=== PATIENT | female | born 1965 | race Caucasian/White ===

== ENCOUNTER 2021-07-24 06:20 | Day surgery (SDC) | payer BC, OTHER ==
[~2021-07-24] VITALS: Ht 162.6 cm; Wt 79.5 kg
--- NOTE | ~2021-07-24 | OR ---
[facility] [address], [place] [address] Draft DATE OF OPERATION: 07/24/2021 SURGEON: Maximiliano Willard MD PREOPERATIVE DIAGNOSIS: History of adenomatous polyps, 2018. POSTOPERATIVE DIAGNOSES: 1. Sigmoid and left-sided diverticulosis. 2. Polyps x4. PROCEDURE: Total colonoscopy to cecum with hot snare polypectomy x1, cold snare polypectomy x1 and cold morcellation polypectomy x2. ANESTHESIA: Intravenous sedation, fentanyl 100 mcg and Versed 6 mg. INDICATION: This 56-year-old white woman is a patient of Dr. Kim. She is practicing information technology program manager locally. She underwent colonoscopy by me in 2018, at which time she was found to have adenomatous polyps. She has no family history of colon cancer though her mother had polyps. She is admitted for surveillance colonoscopy. She understands the risks of bleeding, infection, and perforation. FINDINGS: The prep was excellent. Complete colonoscopy was undertaken to the cecum without question. She had four polyps in total, one in the cecum, one in the proximal ascending colon, one at 30 cm and one at 20 cm. All were excised completely and all were almost certainly adenomatous. DESCRIPTION OF PROCEDURE: The patient was brought to the endoscopy suite and placed in lateral decubitus position, given intravenous sedation to the point of slurred speech and nystagmus. Digital rectal examination was normal. An Olympus video colonoscope was passed in the rectum and manipulated throughout the colon noting diverticular change of the sigmoid and left colon. The scope was passed ultimately into the cecum. Ileocecal valve and appendiceal orifice were normal. A small polyp was noted on a fold in the cecum. This was excised with cold snare PATIENT NAME: ELIAS CALLAWAY OPERATIVE REPORT DATE OF : 69 REPORT #: [id number] PHYSICIAN: MAXIMILIANO WILLARD MD PCP: PANDA KIM MD REPORT IS CONFIDENTIAL AND NOT TO BE RELEASED WITHOUT AUTHORIZATION [facility] [address], [place] [address] Draft technique. Specimen was passed for pathology. The scope was withdrawn and the right colon proper was a smaller polyp. Narrow band imaging confirmed this likely to be adenomatous polyp, this was excised with cold morcellation technique. The scope was further withdrawn and there were no other findings until about 30 cm from the anal verge, where a small, but pedunculated polyp was noted, this was excised with hot snare polypectomy technique. Specimen passed for pathology as well. Further withdrawal at 20 cm showed a subtle, but certain adenomatous appearing polyp, which was excised with multiple bites with cold morcellation device. Further withdrawal showed no other abnormality including retroflexed view, which was normal. The scope was removed and the patient was taken to the recovery room in good condition. CONCLUDING DIAGNOSIS: Polyps x4 and diverticulosis. PLAN: Recommend a repeat colonoscopy in three years sooner if clinically indicated. Recommend high-fiber diet as well. MD LITO Torres/KYLE /[id number] cc: Panda Kim MD Copies: PANDA KIM MD ~ PATIENT NAME: JOSE MEZAELIAS ZUNIGA OPERATIVE REPORT DATE OF : 69 REPORT #: [id number] PHYSICIAN: MAXIMILIANO WILLARD MD PCP: PANDA KIM MD REPORT IS CONFIDENTIAL AND NOT TO BE RELEASED WITHOUT AUTHORIZATION
[~2021-07-24 06:20] MED LIST: CANDICIDAL CAP1 EACH PO; CELECOXIB200 MG PO; DEPO-PROVER150 MG/ML IM; DICLOFENAC SODI75 MG PO; ESTRADIOL0.5 MG PO; FISH OIL 1,0001 EAC6 PO; HYDROCODON-ACE1 EA10 PO; MACULAR HEALTH1 EACH PO; NORTRIPTYLINE H25 MG PO
--- NOTE | 2021-07-24 08:24 | NUR ---
07/24/21 0824 Ranjit Quijano DENIES PAIN OR NAUSEA ON ENTRY TO PACU.
--- NOTE | 2021-07-24 10:05 | NUR ---
PT ALERT, ORIENTED AND SEEMS PREPARED. PT HAS HAD PREVIOUS SCOPE, ALL OF HER QUESTIONS ANSWERED. PT'S WILL P-UP FOLLOWING DC. PT REQUSTTED PRAYER WILL FOLLOW NEEDED
--- NOTE | 2021-07-25 13:15 | PATH ---
[facility] [address], [place] [address] Signed SPECIMEN(S): A CECUM POLYP SPECIMEN(S): B ASCENDING/RIGHT COLON SPECIMEN(S): C POLYP AT 35 CM SPECIMEN(S): D POLYP AT 20 CM SPECIMEN SOURCE: A. CECUM POLYP B. ASCENDING/RIGHT COLON C. POLYP AT 35 CM D. POLYP AT 20 CM CLINICAL HISTORY: Colonoscopy. History of tubular adenoma at 15 and 25 cm, 2018. FINAL PATHOLOGIC DIAGNOSIS: A. Cecum, polypectomy: - Tubular adenoma. B. Colon, ascending/right, polypectomy: - Colonic mucosa with no significant pathologic changes. C. Colon, 35 cm, polypectomy: - Tubular adenoma. D. Colon, 20 cm, polypectomy: - Colonic mucosa with a lymphoid aggregate. BRP:vlg:[id number] MICROSCOPIC EXAMINATION: Histologic sections of all submitted blocks are examined by light microscopy. These findings, together with the gross examination, support the pathologic diagnosis. GROSS DESCRIPTION: Four specimens are received in four containers, labeled "MM." A. The specimen, labeled "MM, cecal polyp," is received in formalin and consists of two negrete soft tissue fragments that measure 0.2-0.7 cm in greatest dimension. The specimen is entirely submitted in cassette (A1). B. The specimen, labeled "MM, right colon polyp," is received in formalin and consists of one negrete soft tissue fragment that measures 0.2 cm in greatest dimension. The specimen is entirely submitted in cassette (B1). C. The specimen, labeled "MM, polyp at 35 cm," is received in formalin and PATIENT NAME: ELIAS CALLAWAY PATHOLOGY DATE OF : 69 REPORT #: [id number] PHYSICIAN: ADEOLA ANDERSEN PCP: PANDA ARAGON MD REPORT IS CONFIDENTIAL AND NOT TO BE RELEASED WITHOUT AUTHORIZATION [facility] [address], [place] [address] Signed consists of three negrete soft tissue fragments that measure 0.3-0.7 cm in greatest dimension. The specimen is entirely submitted in cassette (C1). D. The specimen, labeled "MM, polyp at 20 cm," is received in formalin and consists of three negrete soft tissue fragments that measure 0.2-0.4 cm in greatest dimension. The specimen is entirely submitted in cassette (D1). AT (under the direct supervision of a pathologist) The Gross Description was prepared using a voice recognition system. The report was reviewed for accuracy; however, sound-alike word errors, addition and/or deletions may occur. If there is any question about this report, please contact Client Services. PERFORMING LABORATORY: The technical component was performed by [facility] [id number] (Mid Level Java Developer: Nava Cabrera MD; CLIA# [id number]). [facility] [address] [address] (CLIA# [id number]). Diagnostician: Homer Luna MD Pathologist Electronically Signed 07/25/2021 Copies: ~ PATIENT NAME: ELIAS CALLAWAY PATHOLOGY DATE OF : 69 REPORT #: [id number] PHYSICIAN: ADEOLA PATHOLOGY PCP: PANDA ARAGON MD REPORT IS CONFIDENTIAL AND NOT TO BE RELEASED WITHOUT AUTHORIZATION
== END 2021-07-24 08:55 | disposition home or self-care (01) ==
LOC: DS 06:20 → OPS 06:20 → DS 06:45 → OPS 06:45
PROVIDERS: ATTEND Surgery
PROC: 0DBK8ZX Excision of Ascending Colon, Via Natural or Artificial Opening Endoscopic, Diagnostic (ICD-10-PCS; 2021-07-24)
PROC: 0DBH8ZX Excision of Cecum, Via Natural or Artificial Opening Endoscopic, Diagnostic (ICD-10-PCS; 2021-07-24)
PROC: 0DBE8ZX Excision of Large Intestine, Via Natural or Artificial Opening Endoscopic, Diagnostic (ICD-10-PCS; principal; 2021-07-24 06:45)
DX: D12.2 Benign neoplasm of ascending colon (principal); D12.0 Benign neoplasm of cecum; K57.30 Diverticulosis of large intestine without perforation or abscess without bleeding
CPT/HCPCS: 99153; G0500; J2250; J3010; J7121

== ENCOUNTER 2024-07-20 06:20 | Day surgery (SDC) | payer OTHER ==
[~2024-07-20] VITALS: Ht 162.6 cm; Wt 79.5 kg
[~2024-07-20 06:20] MED LIST changes: +MIDAZOLAM HCL 5 MG/5 ML VIAL IV PRN; +fentaNYL citrate 100 MCG/2 ML VIAL IV PRN
[2024-07-20 06:38] VITALS: BP 128/60
[2024-07-20] MEDS ORDERED: CALCIUM500 MG PO (06:40)
[2024-07-20] MEDS ORDERED: MIDAZOLAM HCL 5 MG/5 ML VIAL ONE (06:41)
[2024-07-20] MEDS ORDERED: fentaNYL citrate 100 MCG/2 ML VIAL ONE (06:41)
[2024-07-20] MEDS ORDERED: LIDOCAINE HCL 1% 5 ML SDV INJ ONE (07:00)
[2024-07-20] MEDS ORDERED: IBLOOD GLUCOSE TEST STRIP 1 EA TEST VI PRN (07:00)
[2024-07-20] MEDS ORDERED: LACTATED RINGER'S 1,000 ML IV SCH (07:00)
--- NOTE | 2024-07-20 07:28 | NUR ---
VISITED DURING SPIRITUAL CARE ROUNDS. PT IN OVERALL GOOD SPIRITS, NO IMMEDIATE NEEDS. MACHINE PECAN GATHERER PROVIDED SUPPORTIVE PRESENCE, HOSPITALITY, PRAYER, FACILITATED INTERACTION WITH THERAPY ANIMAL. PT EXPRESSED GRATITUDE.
--- NOTE | 2024-07-20 08:20 | NUR ---
07/20/24 0820 Rosangela Dutton 0808-PT ARRIVES TO PACU RESTING ON LT SIDE, PT A+O X4, DENIES PAIN OR NUASEA, PT ENCOURAGED TO PASS GAS. VSS ON 1L VIS NC, RR EVEN AND UNLABORED. 0810-PT TITRATED TO RA, VS REMAIN STABLE. 0815-DR. WILLARD AT BEDSIDE TO DISCUSS PROCEDURE RESULTS AND PLAN OF CARE, ALL QUESTIONS ANSWERED. 0820-PT SITTING UP IN BED SIPPING ON WATER, DENIES PAIN, VSS ON RA.
[2024-07-20 08:45] VITALS: BP 112/73
--- NOTE | 2024-07-20 15:12 | OR ---
[facility] [facility] [address] [place], [place] [address] Signed DATE OF OPERATION: 07/20/2024 SURGEON: Maximiliano Willard MD PREOPERATIVE DIAGNOSES: 1. History of tubular adenoma x2 2020. 2. Known diverticulosis. POSTOPERATIVE DIAGNOSES: Diverticulosis, left colon and sigmoid. No evidence of polyp. PROCEDURE: Total colonoscopy to cecum. ANESTHESIA: Intravenous sedation; fentanyl 100 mcg, Versed 5 mg. INDICATION: This 59-year-old white woman is a patient of Dr. Kim. She has undergone colonoscopy by me in the past including in 2020, where she was noted to have four apparent polyps, two of which were tubular adenomas, the others were lymphoid aggregates only. She also had diverticulosis. She is admitted at this time to undergo surveillance colonoscopy. She understands the risk of bleeding, infection, and perforation. She is currently symptom free and has no family history of colon cancer. FINDINGS: The prep was excellent. Complete colonoscopy was undertaken to the cecum with full intubation of the cecum. There were scattered diverticula of the sigmoid and left colon, but no evidence of polyps or other abnormality. DESCRIPTION OF PROCEDURE: The patient was brought to the endoscopy suite and placed in the lateral decubitus position, given intravenous sedation to the point of slurred speech and nystagmus. Digital rectal examination was normal. An Olympus video colonoscope was passed in the rectum and manipulated into the sigmoid and left colon where diverticulosis was noted. The scope was ultimately advanced to the cecum. Full intubation of the cecum was accomplished. Appendiceal orifice and ileocecal valve well identified. The scope was then withdrawn. Examination throughout showed no sign of abnormality other than diverticula. Retroflexed view of the rectum Electronically Signed By: MAXIMILIANO WILLARD MD 07/20/24 1512 PATIENT NAME: ELIAS CALLAWAY OPERATIVE REPORT DATE OF : 69 REPORT #: [id number] PHYSICIAN: MAXIMILIANO WILLARD MD PCP: PANDA KIM MD REPORT IS CONFIDENTIAL AND NOT TO BE RELEASED WITHOUT AUTHORIZATION [facility] [address] [place], [place] [address] Signed was normal. The scope was removed and the patient was taken to recovery room in good condition. CONCLUDING DIAGNOSIS: Diverticulosis. No evidence of polyps. PLAN: Recommend repeat colonoscopy in 7 to 10 years based on current recommendations. Would maintain high-fiber diet as well. She will return to the ongoing care of Dr. Kim. MD LITO Torres/MODL /[id number] cc: Dr. Kim Copies: ~ Electronically Signed By: MAXIMILIANO WILLARD MD 07/20/24 1512 PATIENT NAME: ELIAS CALLAWAY OPERATIVE REPORT DATE OF : 69 REPORT #: [id number] PHYSICIAN: MAXIMILIANO WILLARD MD PCP: PANDA KIM MD REPORT IS CONFIDENTIAL AND NOT TO BE RELEASED WITHOUT AUTHORIZATION
== END 2024-07-20 08:35 | disposition home or self-care (01) ==
LOC: DS 06:20
PROVIDERS: ATTEND Surgery
PROC: 0DJD8ZZ Inspection of Lower Intestinal Tract, Via Natural or Artificial Opening Endoscopic (ICD-10-PCS; principal; 2024-07-20 07:30)
DX: Z12.11 Encounter for screening for malignant neoplasm of colon (principal); K57.30 Diverticulosis of large intestine without perforation or abscess without bleeding; Z86.0101 Personal history of adenomatous and serrated colon polyps; Z88.0 Allergy status to penicillin
CPT/HCPCS: 99153; G0500; J2250; J3010; J7121

== ENCOUNTER 2024-10-15 08:38 | Emergency (ER) | payer OTHER ==
[~2024-10-15] VITALS: Ht 162.6 cm; Wt 81.4 kg
[~2024-10-15 08:38] MED LIST changes: +CALCIUM500 MG PO; -MIDAZOLAM HCL 5 MG/5 ML VIAL IV PRN; -fentaNYL citrate 100 MCG/2 ML VIAL IV PRN
[2024-10-15] MEDS ORDERED: ESTRADIOL42.5 GM VG (09:07)
[2024-10-15] MEDS ORDERED: TAMSULOSIN HCL0.4 MG PO (09:07)
[2024-10-15] MEDS ORDERED: TRAMADOL HCL50 MG PO (09:07)
[2024-10-15] MEDS ORDERED: CIPROFLOXACIN250 MG PO (09:07)
[2024-10-15] MEDS ORDERED: ONDANSETRON ODT4 MG PO (09:07)
[2024-10-15] MEDS ORDERED: ondansetron HCL 4 MG/2 ML VIAL IV ONE (09:15)
[2024-10-15] MEDS ORDERED: SODIUM CHLORIDE 0.9% 1,000 ML IV PRN (09:15)
[2024-10-15] MEDS ORDERED: MORPHINE SULFATE 4 MG/ML VIAL IV ONE (09:15)
[2024-10-15 09:22] LABS: BASOPHILS 0.3 % (0-2); HEMATOCRIT 39.5 % (35.0-50.0); HEMOGLOBIN 13.2 g/dL (12.0-18.0); LYMPHOCYTES 9.7 % (24-44); MCH 26.6 (27-36); MCHC 33.3 g/dl (30-36); MCV 79.8 fl (81-99); MONOCYTES 5.8 % (0-12); NEUTROPHILS 84.2 % (39-80); PLATELET COUNT 283 K/uL (140-440); RBC 4.95 M/ul (4.3-5.7); RDW 15.8 (10.5-15.0)
[2024-10-15 09:42] LABS: ALBUMIN 3.9 g/dL (3.4-5.0); ALBUMIN/GLOBULIN RATIO 1.03 (1.1-2.4); ANION GAP 14.3 (7-21); BILIRUBIN, TOTAL 0.4 mg/dL (0.2-1.0); BUN/CREATININE RATIO 13.13 (6.0-28.6); CALCIUM 9.3 mg/dL (8.5-10.1); CREATININE, SERUM 0.99 mg/dL (0.55-1.02); POTASSIUM 4.3 mmol/L (3.5-5.1); PROTEIN, TOTAL 7.7 g/dL (6.4-8.2)
[2024-10-15 10:19] LABS: BILIRUBIN, URINE NEGATIVE (negative); BLOOD/HGB, URINE LARGE (Negative); KETONE, URINE NEGATIVE (Negative); LEUK ESTERASE, URINE SMALL (negative); NITRITE, URINE NEGATIVE (negative); PH, URINE 6.5 (5-7)
[2024-10-15 10:27] LABS: RED BLOOD CELLS, URINE 21-40 /hpf (0-5)
[2024-10-15 10:28] LABS: BACTERIA, URINE NONE SEEN /hpf (negative); CASTS, URINE NONE SEEN \\lpf; COLLECTION TYPE, URINE CLEAN CATCH; CRYSTALS, URINE NONE SEEN (0-1+); EPITHELIAL CELLS, URINE SQUAMOUS 1+ /lpf (0-1+)
[2024-10-15 10:29] LABS: REFLEX CULTURE, URINE Yes (No)
[2024-10-15] MEDS ORDERED: HYDROCODON-ACE1 EA10 PO (11:52)
[2024-10-15] MEDS ORDERED: CIPROFLOXACIN/DEXTROSE 400 MG/200 ML PIGGYBACK IV ONE (12:00)
[2024-10-15 13:21] VITALS: BP 120/63
== END 2024-10-15 13:21 | disposition home or self-care (01) ==
LOC: ED 08:38
PROVIDERS: Emergency Medicine
DX: R11.10 Vomiting, unspecified (principal); Z98.890 Other specified postprocedural states; Z96.0 Presence of urogenital implants; Z88.0 Allergy status to penicillin; Z79.899 Other long term (current) drug therapy
CPT/HCPCS: 36415; 74176; 80053; 81001; 83690; 85025; 87088; 96374; 96375; 99284-25; J0744; J2270; J2405; J7030

== ENCOUNTER 2025-03-29 05:57 | Day surgery (SDC) | payer OTHER ==
[~2025-03-29] VITALS: Ht 160 cm; Wt 81.0 kg
[~2025-03-29 05:57] MED LIST changes: +CIPROFLOXACIN250 MG PO; +ESTRADIOL42.5 GM VG; +LACTATED RINGER'S 1,000 ML IV SCH; +ONDANSETRON ODT4 MG PO; +TAMSULOSIN HCL0.4 MG PO; +TRAMADOL HCL50 MG PO
[2025-03-29 06:09] VITALS: BP 128/74
[2025-03-29] MEDS ORDERED: CEFAZOLIN SODIUM 2 GM/20 ML SYR IV SCH (07:00)
[2025-03-29] MEDS ORDERED: IBLOOD GLUCOSE TEST STRIP 1 EA TEST VI PRN ×2 (07:00→09:45)
[2025-03-29] MEDS ORDERED: LIDOCAINE HCL 1% 5 ML SDV INJ ONE (07:00)
[2025-03-29] MEDS ORDERED: LIDOCAINE HCL 1% 30 ML SDV ONE (07:07)
[2025-03-29] MEDS ORDERED: LIDOCAINE HCL 2% 5 ML SDV ONE (07:07)
[2025-03-29] MEDS ORDERED: KETOROLAC TROMETHAMINE 30 MG/ML VIAL ONE (07:07)
[2025-03-29] MEDS ORDERED: DEXAMETHASONE SOD PHOS 4 MG/ML VIAL ONE (07:07)
[2025-03-29] MEDS ORDERED: MIDAZOLAM HCL 2 MG/2 ML VIAL ONE (07:29)
[2025-03-29] MEDS ORDERED: PHENAZOPYRIDINE HCL 100 MG TAB PO PRN (07:45)
[2025-03-29] MEDS ORDERED: KETOROLAC TROMETHAMINE 30 MG/ML VIAL IV PRN (07:45)
[2025-03-29] MEDS ORDERED: OXYCODONE/APAP 5/325 TAB PO PRN (07:45)
[2025-03-29] MEDS ORDERED: HYDROmorphone HCL 1 MG/ML SYR IV PRN (07:45)
[2025-03-29] MEDS ORDERED: ACETAMINOPHEN 1,000 MG/100 ML VIAL ONE (09:08)
--- NOTE | 2025-03-29 09:23 | NUR ---
03/29/25 0923 Stephanie Morales 0918: PT ARRIVES TO PACU, NO AROUSAL TO STIMULI. REPORT RECIEVED FROM PULMONARY DISEASE SPECIALIST AND GRINDING SUPERVISOR.
[2025-03-29] MEDS ORDERED: NALOXONE HCL 0.4 MG SYR IV PRN (09:45)
[2025-03-29] MEDS ORDERED: fentaNYL citrate 50 MCG/ML SDV IV PRN (09:45)
[2025-03-29 09:54] VITALS: BP 122/74
--- NOTE | 2025-03-29 09:58 | NUR ---
0952- PT ARRIVES FROM PACU. PT DENIES PAIN AND NAUSEA. WARM BLANKETS PROVIDED PER PT REQUEST. VITAL SIGNS OBTAINED. DISCHARGE CRITERIA DISCUSSED AND PT IS UNDERSTANDING. PT FALLS ASLEEP BUT IS EASILY WOKEN WITH VERBAL STIMULI. BED IS LOCKED IN THE LOWEST POSITION AND CALL LIGHT IS IN REACH.
[2025-03-29 10:58] VITALS: BP 144/68
--- NOTE | 2025-03-29 12:58 | NUR ---
1055- PT IS UP TO USE THE BATHROOM. PT WALKS WITH A STEADY AND EVEN GAIT. 300ML OF RED TINGED URINE NOTED. PT IS ABLE TO RETURN BACK TO STRETCHER SAFELY. VITAL SIGNS OBTAINED. PT IS ABLE TO EAT AND DRINK WITH NO ISSUES. PT DENIES PAIN AND NAUSEA. 1115- DISCHARGE INSTRUCTIONS GONE OVER WELL HAS HOW AND WHEN TO REMOVE THE STENT. ALL QUESTIONS AND CONCERNS ANSWERED. IV REMOVED. PT IS ABLE TO GET DRESSED INDEPENDENTLY. PT IS ABLE TO GET INTO HOSPITAL WHEELCAHIR WITH NO ISSUES. PT DC'S FROM DAY SURGERY AT THIS TIME AND IS ABLE TO GET INTO FRIENDS VEHICLE WITH NO ISSUES. PRESCIPTION IS WITH PT. PT HAS ALL BELONGINGS.
--- NOTE | 2025-03-29 14:16 | NUR ---
PT NOT AVAILABLE FOR VISIT. PROVIDED PRAYER.
[2025-03-29] MEDS ORDERED: SEVOFLURANE 250 ML BTL INH ONE (14:30)
[2025-04-02] MEDS ORDERED: HYDROCODON-ACE1 EA10 PO (16:59)
[2025-04-04 05:24] LABS: CALCULI MASS 87 mg (())
== END 2025-03-29 11:15 | disposition home or self-care (01) ==
LOC: DS 05:57
PROVIDERS: ATTEND Urology
PROC: 0TC08ZZ Extirpation of Matter from Right Kidney, Via Natural or Artificial Opening Endoscopic (ICD-10-PCS; principal; 2025-03-29 07:30)
PROC: 0T768DZ Dilation of Right Ureter with Intraluminal Device, Via Natural or Artificial Opening Endoscopic (ICD-10-PCS; 2025-03-29 07:30)
DX: N20.0 Calculus of kidney (principal); Z88.0 Allergy status to penicillin
CPT/HCPCS: 00918; 74420; 82365; C1769; C2617; J0131; J0690; J1100; J1790; J1885; J2003; J2250; J2405; J2704; J7121; Q9967

== ENCOUNTER 2025-04-02 12:44 | Emergency (ER) | payer OTHER ==
[~2025-04-02] VITALS: Ht 160 cm; Wt 82.5 kg
[~2025-04-02 12:44] MED LIST changes: -LACTATED RINGER'S 1,000 ML IV SCH
[2025-04-02 13:56] LABS: BLOOD/HGB, URINE LARGE (Negative); KETONE, URINE SMALL (Negative); LEUK ESTERASE, URINE MODERATE (negative); NITRITE, URINE POSITIVE (negative)
[2025-04-02] MEDS ORDERED: KETOROLAC TROMETHAMINE 30 MG/ML VIAL IV ONE (14:00)
[2025-04-02] MEDS ORDERED: MORPHINE SULFATE 4 MG/ML VIAL IV ONE (14:00)
[2025-04-02 14:01] LABS: EPITHELIAL CELLS, URINE 0 /lpf (0-1+)
[2025-04-02 14:03] LABS: BACTERIA, URINE 1+ /hpf (negative); CASTS, URINE NONE SEEN \\lpf; CRYSTALS, URINE NONE SEEN (0-1+); REFLEX CULTURE, URINE Yes (No)
[2025-04-02] MEDS ORDERED: OXYCODONE HCL5 M3 (14:04)
[2025-04-02] MEDS ORDERED: CIPROFLOXACIN500 MG PO (14:04)
[2025-04-02] MEDS ORDERED: DOCUSATE SODIU100 MG PO (14:05)
[2025-04-02 14:13] LABS: BASOPHILS 0.3 % (0.1-1.2); EOSINOPHILS 0.3 % (0.7-5.8); LYMPHOCYTES 17.8 % (19.3-51.7); MCH 24.3 PG (25.6-32.2); MCHC 31.2 g/dL (32.2-35.5); MCV 77.7 fL (79.4-94.8); MONOCYTES 6.8 % (4.7-12.5); NEUTROPHILS 74.5 % (34.0-71.1); RBC 5.03 M/uL (3.93-5.22)
[2025-04-02 14:29] LABS: ALT (SGPT) 25.0 U/L (14-59); AST (SGOT) 25.0 U/L (15-37); GLOMERULAR FILTRATION RATE,EST 63.0 mL/min (>60); PROTEIN, TOTAL 8.0 g/dL (6.4-8.2); UREA NITROGEN 18.0 mg/dL (7-18)
[2025-04-02] MEDS ORDERED: SODIUM CHLORIDE 0.9% 1,000 ML IV PRN (15:15)
[2025-04-02] MEDS ORDERED: CEPHALEXIN500 MG PO (16:56)
[2025-04-02] MEDS ORDERED: ONDANSETRON ODT4 MG PO (16:59)
[2025-04-02] MEDS ORDERED: CEPHALEXIN MONOHYDRATE 500 MG CAP PO ONE (17:00)
[2025-04-02 17:58] VITALS: BP 125/78
== END 2025-04-02 17:33 | disposition home or self-care (01) ==
LOC: ED 12:44
PROVIDERS: Emergency Medicine
DX: N39.0 Urinary tract infection, site not specified (principal); Z88.0 Allergy status to penicillin; Z79.899 Other long term (current) drug therapy
CPT/HCPCS: 36415; 74176; 80053; 81001; 85025; 87088; 96361; 96374; 96375; 99284-25; A9270; J1885; J2270; J2405; J7030